=== PATIENT | female | born 1955 | race Caucasian/White ===

== ENCOUNTER 2024-04-12 12:07 | Inpatient (IN) | payer MEDICARE, BC ==
[~2024-04-12] VITALS: Ht 177.8 cm; Wt 65.5 kg
[2024-04-12 13:14] LABS: BASOPHILS % (AUTO) 0.9 % (0-1); EOSINOPHILS # (AUTO) 0.2 X10'3 (0-0.9); EOSINOPHILS % (AUTO) 6.1 % (0-6); HEMATOCRIT 38.7 % (35.0-45.0); HEMOGLOBIN 12.5 g/dl (12.0-16.0); LYMPHOCYTES % (AUTO) 30.9 % (21-51); MEAN CORPUSCULAR HGB CONC 32.4 g/dL (33.0-36.5); MEAN CORPUSCULAR VOLUME 80.2 FL (78-98); MEAN PLATELET VOLUME 8.2 FL (7.4-10.4); MONOCYTES # (AUTO) 0.3 X10'3 (0-0.9); MONOCYTES % (AUTO) 9.9 % (2-12); NEUTROPHILS # (AUTO) 1.7 X10'3 (1.8-7.7); NEUTROPHILS % (AUTO) 52.2 % (42-75); PLATELET COUNT 184 X10'3 (140-440); RED BLOOD COUNT 4.82 X10'6 (4.20-5.60); RED CELL DISTRIBUTION WIDTH 21.3 % (11.5-14.5); WHITE BLOOD COUNT 3.2 X10'3 (4.5-11.0)
[2024-04-12 13:33] LABS: ALBUMIN 3.6 G/DL (3.4-5.0); ANION GAP 7 (8-16); BLOOD UREA NITROGEN 8 MG/DL (7-18); BUN/CREATININE RATIO 10.8 (10.0-20.0); CALCIUM 9.4 MG/DL (8.5-10.1); CHLORIDE 102 MMOL/L (99-107); CREATININE 0.74 MG/DL (0.40-0.90); GLUCOSE 102 MG/DL (70-104); POTASSIUM 4.4 MMOL/L (3.5-5.1); PRO BRAIN NATRIURETIC PEPTIDE < 30 PG/ML (0-125); SODIUM 140 MMOL/L (135-145); TOTAL CARBON DIOXIDE 31.1 MMOL/L (24-32); eGFR 78 ML/MIN
[2024-04-12 14:41] LABS: BILIRUBIN,URINE NEGATIVE (Neg); CLARITY,URINE CLEAR (Clear); COLOR,URINE YELLOW (Yellow); GLUCOSE, URINE NEGATIVE (Neg); KETONES,URINE NEGATIVE (Neg); LEUKOCYTE ESTERASE ,URINE NEGATIVE (Neg); NITRITES, URINE NEGATIVE (Neg); OCCULT BLOOD,URINE NEGATIVE (Neg); PROTEIN,URINE NEGATIVE (Neg); UROBILINOGEN,URINE 0.2 E.U/dL (0.2-1.0)
[2024-04-12 14:44] LABS: UA COLLECTION TYPE STRAIGHT CATH
[2024-04-12 15:15] LABS: ANISOCYTOSIS 3+; PLATELET ESTIMATE NORMAL
[2024-04-12] MEDS: normal saline 1000ML IV soln IVB ONE ×2 (15:23→17:22)
[2024-04-12] MEDS: ondansetron/PF 4mg/2ml inj IV ONE ×2 (17:31→19:37)
[2024-04-12] MEDS: aspirin 81mg tab.chew PO ONE (18:39)
[2024-04-12] MEDS: CefTRIAXone 2gm/D5W 50ml BAG 50 ML IV ONE (18:48)
[2024-04-12] MEDS: VANCOmycin 2,000MG in NS 500ml IV soln IV ONE (19:38)
[2024-04-12] MEDS ORDERED: morphine 2 MG/ML inj. syringe IV PRN (20:40)
[2024-04-12] MEDS ORDERED: magnesium sulf-water 4G/100mL 100 ML IV PRN (20:40)
[2024-04-12] MEDS ORDERED: acetaminophen 325mg tablet PO PRN ×2 (20:40)
[2024-04-12] MEDS ORDERED: magnesium hydroxide 30ml (MOM) UD suspension PO PRN (20:40)
[2024-04-12] MEDS ORDERED: potassium Cl 40MEQ/1/2NS 520ml 520 ML IV PRN (20:40)
[2024-04-12] MEDS ORDERED: potassium Cl 20 mEq SR tablet PO PRN ×2 (20:40)
[2024-04-12] MEDS ORDERED: mag hydrox/Alum hydrox/simeth 30ml oral suspension PO PRN (20:40)
[2024-04-12] MEDS ORDERED: magnesium sulf-water 2g/50mL 50 ML IV PRN (20:40)
[2024-04-12] MEDS: zolpidem 5mg tablet PO SCH (22:20)
[2024-04-12] MEDS: tamsulosin 0.4mg capsule PO SCH (22:34)
[2024-04-12] MEDS: normal saline 1000ml 1,000 ML IV SCH (22:35)
[2024-04-12] MEDS ORDERED: RIME75TA PO (23:14)
[2024-04-12] MEDS ORDERED: DEUT24TA PO (23:14)
[2024-04-12] MEDS ORDERED: METF-1203 PO (23:14)
[2024-04-12] MEDS ORDERED: BUTA-245 PO (23:14)
[2024-04-12] MEDS ORDERED: DEUT12TA PO (23:14)
[2024-04-12] MEDS ORDERED: LAMO300T2 PO (23:14)
[2024-04-12] MEDS ORDERED: HYDR-3972 PO (23:14)
[2024-04-12] MEDS ORDERED: MORP-92 PO (23:14)
[2024-04-12] MEDS ORDERED: SIMV-42 PO (23:14)
[2024-04-12] MEDS ORDERED: DULO30CA52 PO (23:14)
[2024-04-12] MEDS ORDERED: LEVO150T61 PO (23:14)
[2024-04-12] MEDS ORDERED: VIBE75TA PO (23:14)
[2024-04-12] MEDS ORDERED: PALI6TAB6 PO (23:14)
[2024-04-12] MEDS ORDERED: SEMA1PEN3 INJ (23:14)
[2024-04-12] MEDS ORDERED: ESTR10TA9 VG (23:14)
[2024-04-12] MEDS ORDERED: PREG100C56 PO (23:14)
[2024-04-12] MEDS ORDERED: ZOLP5TAB8 PO (23:14)
[2024-04-12] MEDS ORDERED: FLUT1BLS3 INH (23:14)
[2024-04-12] MEDS ORDERED: DOXE50CA4 PO (23:14)
[2024-04-12] MEDS ORDERED: DULO60CA65 PO (23:14)
[2024-04-12] MEDS ORDERED: PANT40TA54 PO (23:14)
[2024-04-13] VITALS (8 sets, daily range): BP systolic 131–165; BP diastolic 61–89; PULSE 16–111; RESP 11–16; TEMP 97.3–98.9; O2SAT 92–97
[2024-04-13] MEDS: HYDROcodone/acetaminophen 10/325mg tab PO PRN (05:57)
[2024-04-13 07:20] LABS: BASOPHILS % (AUTO) 0.6 % (0-1); EOSINOPHILS % (AUTO) 0.1 % (0-6); HEMOGLOBIN 11.9 g/dl (12.0-16.0); LYMPHOCYTES % (AUTO) 23.4 % (21-51); MEAN CORPUSCULAR HEMOGLOBIN 25.6 PG (27.0-31.0); MEAN CORPUSCULAR HGB CONC 32.1 g/dL (33.0-36.5); MEAN CORPUSCULAR VOLUME 79.7 FL (78-98); MEAN PLATELET VOLUME 8.1 FL (7.4-10.4); MONOCYTES # (AUTO) 0.3 X10'3 (0-0.9); MONOCYTES % (AUTO) 6.8 % (2-12); NEUTROPHILS % (AUTO) 69.1 % (42-75); PLATELET COUNT 173 X10'3 (140-440); RED BLOOD COUNT 4.63 X10'6 (4.20-5.60); RED CELL DISTRIBUTION WIDTH 21.8 % (11.5-14.5); WHITE BLOOD COUNT 4.4 X10'3 (4.5-11.0)
[2024-04-13 07:29] LABS: APTT 32 SECONDS (22-32); PROTHROMBIN TIME 11.2 SECONDS (9.0-12.0)
[2024-04-13] MEDS ORDERED: butalbital/acetaminophen/caffeine (Fioricet) tablet PO PRN (07:50)
[2024-04-13] MEDS ORDERED: HYDROcodone/acetaminophen 10/325mg tab PO PRN (07:50)
[2024-04-13] MEDS ORDERED: RIMEGEPANT SULFATE 75 MG PO PRN (07:50)
[2024-04-13 07:56] LABS: ALANINE AMINOTRANSFERASE 26 U/L (12-78); ALBUMIN/GLOBULIN RATIO 0.7 (1.1-1.5); ALKALINE PHOSPHATASE 121 IU/L (46-116); ANION GAP 10 (8-16); ASPARTATE AMINO TRANSFERASE 23 U/L (10-37); BILIRUBIN,TOTAL 0.3 MG/DL (0.1-1.0); BLOOD UREA NITROGEN 8 MG/DL (7-18); CHLORIDE 101 MMOL/L (99-107); CHOL/HDL RATIO 1.8 (0.00-4.99); CHOLESTEROL 133 MG/DL (0-200); GLUCOSE 101 MG/DL (70-104); HDL CHOLESTEROL 72 MG/DL (35-60); LDL CHOLESTEROL 45 MG/DL (50-100); MAGNESIUM 1.8 MG/DL (1.5-2.4); PHOSPHORUS 3.9 MG/DL (2.3-4.5); SODIUM 136 MMOL/L (135-145); TOTAL CARBON DIOXIDE 24.8 MMOL/L (24-32); TOTAL PROTEIN 7.2 G/DL (6.4-8.2); TRIGLYCERIDES 53 MG/DL (20-135); eCRCL 118 ML/MIN; eGFR > 90 ML/MIN
[2024-04-13 08:00] LABS: HEMOGLOBIN A1C 5.5 % (4.5-6.2)
[2024-04-13] MEDS ORDERED: non-formulary drug (Duloxetine HCl 1 CAP) PO SCH (08:00)
[2024-04-13] MEDS: LAMOTRIGINE 300 MG PO SCH (08:00)
[2024-04-13] MEDS: DEUTETRABENAZINE PO SCH ×2 (08:00→21:00)
[2024-04-13] MEDS: Fluticasone/Vilanterol (Breo Ellipta 200-25 Mcg INH) IH SCH (08:00)
[2024-04-13] MEDS: ondansetron/PF 4mg/2ml inj IV PRN (08:38)
[2024-04-13] MEDS: metFORMIN 500mg tablet PO SCH (08:53)
[2024-04-13] MEDS: morphine ER 15mg tablet PO SCH (08:53)
[2024-04-13] MEDS: levoTHYROXINE 75mcg tablet PO SCH (08:53)
[2024-04-13] MEDS: pregabalin 25mg capsule PO SCH (08:54)
[2024-04-13] MEDS: duloxetine 30mg CAPSULE.DR PO SCH (08:54)
[2024-04-13] MEDS: pantoprazole 40mg Tablet.DR PO SCH (08:55)
[2024-04-13] MEDS: K and/or MAG REPLACEMENT MC SCH (08:58)
[2024-04-13] MEDS: PERFLUTREN PROTEIN-A MICROSPHR (Optison) 0.22 MG/ML 3ML VIAL IV ONE ×2 (09:00→11:35)
[2024-04-13] MEDS: metoclopramide 5 mg/ml inj IV PRN (12:07)
[2024-04-13 13:16] LABS: D-DIMER 1.02 MG/L FEU (0-0.50)
[2024-04-13] MEDS: simvastatin 20mg tablet PO SCH ×2 (17:41→21:28)
[2024-04-13] MEDS: normal saline 1000ml 1,000 ML IV SCH (18:02)
[2024-04-13] MEDS: CefTRIAXone/D5W-Rocephin 1gm 50 ML IV SCH (18:02)
[2024-04-13] MEDS: doxepin 25mg capsule PO SCH (20:48)
[2024-04-13] MEDS: enoxaparin 40mg/0.4ml syringe SQ SCH (20:55)
[2024-04-13] MEDS ORDERED: Vibegron (Gemtesa) 75 MG TAB PO SCH (21:00)
[2024-04-13] MEDS ORDERED: zolpidem 5mg tablet PO SCH (21:00)
[2024-04-13] MEDS: paliperidone 1.5mg ER tablet PO SCH (22:52)
[2024-04-14] VITALS (8 sets, daily range): BP systolic 115–148; BP diastolic 58–77; PULSE 72–116; RESP 14–21; TEMP 97.6–99; O2SAT 90–96
[2024-04-14 07:58] LABS: BASOPHILS % (AUTO) 0.7 % (0-1); EOSINOPHILS % (AUTO) 0.9 % (0-6); HEMATOCRIT 37.4 % (35.0-45.0); LYMPHOCYTES # (AUTO) 1.7 X10'3 (1.1-4.8); LYMPHOCYTES % (AUTO) 30.5 % (21-51); MEAN CORPUSCULAR HEMOGLOBIN 25.3 PG (27.0-31.0); MEAN CORPUSCULAR HGB CONC 32.2 g/dL (33.0-36.5); MEAN CORPUSCULAR VOLUME 78.7 FL (78-98); MEAN PLATELET VOLUME 8.3 FL (7.4-10.4); MONOCYTES # (AUTO) 0.6 X10'3 (0-0.9); NEUTROPHILS # (AUTO) 3.1 X10'3 (1.8-7.7); NEUTROPHILS % (AUTO) 56.9 % (42-75); PLATELET COUNT 189 X10'3 (140-440); RED BLOOD COUNT 4.75 X10'6 (4.20-5.60); RED CELL DISTRIBUTION WIDTH 21.3 % (11.5-14.5); WHITE BLOOD COUNT 5.5 X10'3 (4.5-11.0)
[2024-04-14 08:04] LABS: APTT 32 SECONDS (22-32); INR 1.1 INR; PROTHROMBIN TIME 11.4 SECONDS (9.0-12.0)
[2024-04-14 08:11] LABS: ALANINE AMINOTRANSFERASE 33 U/L (12-78); ALBUMIN 3.1 G/DL (3.4-5.0); ALBUMIN/GLOBULIN RATIO 0.8 (1.1-1.5); ALKALINE PHOSPHATASE 112 IU/L (46-116); ANION GAP 8 (8-16); ASPARTATE AMINO TRANSFERASE 26 U/L (10-37); BILIRUBIN,TOTAL 0.2 MG/DL (0.1-1.0); BLOOD UREA NITROGEN 8 MG/DL (7-18); BUN/CREATININE RATIO 13.6 (10.0-20.0); CALCIUM 8.6 MG/DL (8.5-10.1); CHLORIDE 102 MMOL/L (99-107); CREATININE 0.59 MG/DL (0.40-0.90); GLUCOSE 99 MG/DL (70-104); MAGNESIUM 1.3 MG/DL (1.5-2.4); PHOSPHORUS 2.8 MG/DL (2.3-4.5); POTASSIUM 3.6 MMOL/L (3.5-5.1); SODIUM 137 MMOL/L (135-145); TOTAL CARBON DIOXIDE 26.6 MMOL/L (24-32); TOTAL PROTEIN 7.2 G/DL (6.4-8.2); eCRCL 100 ML/MIN; eGFR > 90 ML/MIN
[2024-04-14 08:31] LABS: ANISOCYTOSIS 3+; MICROCYTOSIS 1+; PLATELET ESTIMATE NORMAL; POIKILOCYTOSIS FEW; POLYCHROMASIA FEW
[2024-04-14] MEDS: magnesium Cl slow-release 64mg tablet PO PRN (10:56)
[2024-04-14 11:04] LABS: THYROID STIMULATING HORMONE 0.81 ulU/ml (0.34-4.50)
[2024-04-14] MEDS: normal saline 500ml IV soln 500 ML IV ONE (17:04)
[2024-04-15] VITALS (9 sets, daily range): BP systolic 126–154; BP diastolic 68–88; PULSE 68–111; RESP 12–18; TEMP 97.9–99; O2SAT 93–95
[2024-04-15 07:10] LABS: BASOPHILS % (AUTO) 0.7 % (0-1); EOSINOPHILS # (AUTO) 0.1 X10'3 (0-0.9); EOSINOPHILS % (AUTO) 1.7 % (0-6); HEMATOCRIT 36.5 % (35.0-45.0); HEMOGLOBIN 11.9 g/dl (12.0-16.0); LYMPHOCYTES % (AUTO) 34.3 % (21-51); MEAN CORPUSCULAR HEMOGLOBIN 26.1 PG (27.0-31.0); MEAN CORPUSCULAR HGB CONC 32.6 g/dL (33.0-36.5); MEAN CORPUSCULAR VOLUME 80.1 FL (78-98); MEAN PLATELET VOLUME 8.6 FL (7.4-10.4); MONOCYTES # (AUTO) 0.7 X10'3 (0-0.9); MONOCYTES % (AUTO) 11.8 % (2-12); NEUTROPHILS % (AUTO) 51.5 % (42-75); PLATELET COUNT 170 X10'3 (140-440); RED BLOOD COUNT 4.56 X10'6 (4.20-5.60); RED CELL DISTRIBUTION WIDTH 21.5 % (11.5-14.5); WHITE BLOOD COUNT 5.7 X10'3 (4.5-11.0)
[2024-04-15 07:14] LABS: APTT 32 SECONDS (22-32); INR 1.1 INR; PROTHROMBIN TIME 11.3 SECONDS (9.0-12.0)
[2024-04-15 07:28] LABS: ALANINE AMINOTRANSFERASE 31 U/L (12-78); ALBUMIN 2.9 G/DL (3.4-5.0); ALBUMIN/GLOBULIN RATIO 0.7 (1.1-1.5); ALKALINE PHOSPHATASE 100 IU/L (46-116); ANION GAP 8 (8-16); ASPARTATE AMINO TRANSFERASE 23 U/L (10-37); BILIRUBIN,TOTAL 0.2 MG/DL (0.1-1.0); BLOOD UREA NITROGEN 8 MG/DL (7-18); BUN/CREATININE RATIO 13.8 (10.0-20.0); CALCIUM 9.1 MG/DL (8.5-10.1); CHLORIDE 104 MMOL/L (99-107); CREATININE 0.58 MG/DL (0.40-0.90); GLUCOSE 99 MG/DL (70-104); MAGNESIUM 1.7 MG/DL (1.5-2.4); POTASSIUM 3.5 MMOL/L (3.5-5.1); SODIUM 137 MMOL/L (135-145); TOTAL CARBON DIOXIDE 24.8 MMOL/L (24-32); TOTAL PROTEIN 7.1 G/DL (6.4-8.2); eCRCL 102 ML/MIN; eGFR > 90 ML/MIN
[2024-04-15] MEDS: ESTRADIOL 10 MCG VG SCH (08:00)
[2024-04-15] MEDS: Semaglutide (Ozempic) 1 MG SQ SCH (08:00)
[2024-04-15] MEDS ORDERED: simvastatin 20mg tablet PO SCH (10:58)
[2024-04-15] MEDS: DEUTETRABENAZINE PO SCH (13:19)
[2024-04-15] MEDS ORDERED: DEUTETRABENAZINE PO ONE (14:20)
[2024-04-15] MEDS: DEUTETRABENAZINE PO ONE (14:57)
[2024-04-15] MEDS: LAMOTRIGINE 300 MG PO SCH (19:46)
[2024-04-16 02:00] VITALS: BP 139/81; PULSE 112; RESP 16; TEMP 97.3; O2SAT 94
[2024-04-16 06:00] VITALS: BP 145/72; PULSE 86; RESP 18; TEMP 97.9; O2SAT 93
[2024-04-16 06:49] LABS: BASOPHILS % (AUTO) 0.7 % (0-1); EOSINOPHILS # (AUTO) 0.2 X10'3 (0-0.9); EOSINOPHILS % (AUTO) 3.3 % (0-6); HEMATOCRIT 35.2 % (35.0-45.0); HEMOGLOBIN 11.4 g/dl (12.0-16.0); LYMPHOCYTES # (AUTO) 1.8 X10'3 (1.1-4.8); LYMPHOCYTES % (AUTO) 30.7 % (21-51); MEAN CORPUSCULAR HEMOGLOBIN 25.6 PG (27.0-31.0); MEAN CORPUSCULAR HGB CONC 32.4 g/dL (33.0-36.5); MEAN CORPUSCULAR VOLUME 79.1 FL (78-98); MEAN PLATELET VOLUME 8.3 FL (7.4-10.4); MONOCYTES # (AUTO) 0.7 X10'3 (0-0.9); MONOCYTES % (AUTO) 12.8 % (2-12); NEUTROPHILS # (AUTO) 3.1 X10'3 (1.8-7.7); NEUTROPHILS % (AUTO) 52.5 % (42-75); PLATELET COUNT 155 X10'3 (140-440); RED BLOOD COUNT 4.45 X10'6 (4.20-5.60); RED CELL DISTRIBUTION WIDTH 20.9 % (11.5-14.5); WHITE BLOOD COUNT 5.8 X10'3 (4.5-11.0)
[2024-04-16 06:58] LABS: INR 1.1 INR; PROTHROMBIN TIME 11.3 SECONDS (9.0-12.0)
[2024-04-16 07:05] LABS: ALANINE AMINOTRANSFERASE 27 U/L (12-78); ALBUMIN 2.9 G/DL (3.4-5.0); ALBUMIN/GLOBULIN RATIO 0.7 (1.1-1.5); ALKALINE PHOSPHATASE 97 IU/L (46-116); ANION GAP 7 (8-16); ASPARTATE AMINO TRANSFERASE 21 U/L (10-37); BILIRUBIN,TOTAL 0.2 MG/DL (0.1-1.0); BLOOD UREA NITROGEN 8 MG/DL (7-18); BUN/CREATININE RATIO 13.3 (10.0-20.0); CHLORIDE 103 MMOL/L (99-107); GLUCOSE 98 MG/DL (70-104); MAGNESIUM 1.7 MG/DL (1.5-2.4); POTASSIUM 3.5 MMOL/L (3.5-5.1); SODIUM 138 MMOL/L (135-145); TOTAL CARBON DIOXIDE 27.8 MMOL/L (24-32); eCRCL 94 ML/MIN; eGFR > 90 ML/MIN
[2024-04-16 08:00] VITALS: RESP 18; O2SAT 93
[2024-04-16] MEDS ORDERED: PALIPERIDONE 3 MG TAB.ER.24 PO SCH (09:38)
[2024-04-16 11:00] VITALS: BP 136/75; PULSE 97; RESP 14; TEMP 97.7; O2SAT 92
[2024-04-16] MEDS: DEUTETRABENAZINE PO SCH (13:31)
== END 2024-04-16 15:25 | DRG 73 ==
LOC: ER 12:07 → ED HOLD 20:43 → PCU 3S 04-13 01:10
PROVIDERS: ADMIT Internal Medicine Pulmonary Disease; ATTEND Internal Medicine
DX: E11.42 Type 2 diabetes mellitus with diabetic polyneuropathy (principal); I21.A1 Myocardial infarction type 2; N20.1 Calculus of ureter; D84.9 Immunodeficiency, unspecified; G90.8 Other disorders of autonomic nervous system; I95.1 Orthostatic hypotension; G89.29 Other chronic pain; E78.5 Hyperlipidemia, unspecified; I51.7 Cardiomegaly; Z20.822 Contact with and (suspected) exposure to COVID-19; K90.0 Celiac disease; R01.1 Cardiac murmur, unspecified; F31.9 Bipolar disorder, unspecified; R33.9 Retention of urine, unspecified; Z88.2 Allergy status to sulfonamides
CPT/HCPCS: 36415; 70450; 71045; 74176; 80048; 80053; 80061; 81003; 83036; 83605; 83735; 83880; 84100; 84145; 84443; 84484; 85008; 85025; 85379; 85610; 85730; 87040; 87081; 87502; 87503; 87811; 93005; 93306; 93880; 96365; 96367; 96375; 97110; 97116; 97162; 97530; 99285; A4353; A4615; G0378; J0696; J1650; J2405; J2765; J3370; J7030; J7040